=== PATIENT | male | born 1995 | race Caucasian/White ===

== ENCOUNTER 2024-04-20 07:54 | Emergency (ER) | payer SELFPAY ==
[2024-04-20 08:09] VITALS: BP 138/75; PULSE 75; RESP 18; TEMP 98; BMI 21.7
[2024-04-20] MEDS ORDERED: chlordiazePOXIDE HCL 25 MG CAPSULE ONE (08:53)
[2024-04-20] MEDS: chlordiazePOXIDE HCL 25 MG CAPSULE PO ONE (08:58)
[2024-04-20] MEDS ORDERED: ONDANSETRON 4 MG/2 ML VIAL ONE (09:02)
[2024-04-20] MEDS: ONDANSETRON 4 MG/2 ML VIAL IVPUSH ONE (09:23)
[2024-04-20] MEDS ORDERED: ONDANSETRON 4 MG TABLET PO ONE (09:24)
[2024-04-20] MEDS: ONDANSETRON *ODT* 4 MG TABLET SL ONE (09:29)
== END 2024-04-20 09:56 | disposition home or self-care (01) ==
LOC: JER 07:54
DX: F10.929 Alcohol use, unspecified with intoxication, unspecified (principal); R11.2 Nausea with vomiting, unspecified; R51.9 Headache, unspecified; Y90.9 Presence of alcohol in blood, level not specified
CPT/HCPCS: 99283-25; Q0162